=== PATIENT | female | born 1985 | race Two or more races ===

== ENCOUNTER 2017-08-19 09:13 | Emergency (ER) | payer MEDICAID ==
[~2017-08-19] VITALS: Ht 152.4 cm; Wt 65.8 kg
[~2017-08-19 09:13] MED LIST: ANTI-ITCH28 GM TOPIC; BENADRYL25 MG ORAL; CIPROFLOXACIN500 M2 ORAL; HYDROCORTISONE28 G5 TP; NKM; PREDNISONE20 MG ORAL; RANITIDINE HCL150 MG ORAL
[2017-08-19] MEDS ORDERED: NKM (09:21)
[2017-08-19 09:49] VITALS: BP 118/75
--- NOTE | 2017-08-19 09:49 | Emergency Room Report ---
History of Present Illness General Chief Complaint: Sore Throat Source: Patient Present Illness HPI The patient is a 31-year-old female presented after increased sore throat. Patient had a nonproductive cough. She reports having ill contact at home. She denies any fever. She denies difficulty breathing.The patient additionally reports having increased white thick vaginal discharge for several months.The patient denies being . Allergies: Coded Allergies: No Known Allergies (Unverified , 08/19/17) Patient History Past Medical History: see triage record Last Menstrual Period: 08/10/17 Now: No Reviewed Nursing Documentation: PMH: Agreed, PSxH: Agreed Nursing Documentation-PMH Past Medical History: No Stated History Review of Systems All Other Systems: negative except mentioned in HPI Physical Exam Vital Signs Date Time Temp Pulse Resp B/P (MAP) Pulse Ox O2 Delivery O2 Flow Rate FiO2 08/19/17 09:15 98.2 83 16 118/75 99 Room Air General Appearance: well appearing, no apparent distress, alert, GCS 15 Head: normocephalic, atraumatic ENT: hearing grossly normal, normal voice Neck: full range of motion, supple Respiratory: no respiratory distress, speaking full sentences Cardiovascular #1: normal inspection, no edema Gastrointestinal: normal inspection Musculoskeletal: normal inspection, back normal, digits/nails normal, no calf tenderness Neurologic: normal inspection, alert, oriented x3, responsive, normal gait Psychiatric: mood/affect normal Skin: no rash Medical Decision Making Diagnostic Impression: Primary Impression: Viral respiratory infection Additional Impression: Yeast vaginitis ER Course Patient presented for sore throat. Differential diagnosis included but was not limited to meningitis, exudative tonsillitis, retropharyngeal abscess, epiglottitis, strep pharyngitis. Patient's benign exam and does not appear to require any further imaging or laboratory testing at this time. Patient's exam is consistent with a viral pharyngitis. The patient was given Diflucan. 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 The patient is advised to follow up with primary care doctor in 1-2 days. Patient is advised to return if any worsening condition or if any changes in status that are concerning. Labs Test 08/19/17 09:30 Urine HCG, Qualitative Negative Last Vital Signs Date Time Temp Pulse Resp B/P (MAP) Pulse Ox O2 Delivery O2 Flow Rate FiO2 08/19/17 09:15 98.2 83 16 118/75 99 Room Air Status: improved Disposition: HOME, SELF-CARE Condition: Stable Referrals: NOT CHOSEN [facility]/,REFERRING (PCP) Bassem Gomez Aug 19, 2017 09:49
[2017-08-19] MEDS ORDERED: Fluconazole 100mg tab ORAL ONE (10:00)
[2017-08-19 10:51] VITALS: BP 118/75
== END 2017-08-19 10:52 | disposition home or self-care (01) ==
LOC: EMR 09:25
DX: J06.9 Acute upper respiratory infection, unspecified (principal); B97.89 Other viral agents as the cause of diseases classified elsewhere; B37.3 Candidiasis of vulva and vagina
CPT/HCPCS: 81025; 99283

== ENCOUNTER 2020-04-16 23:41 | Emergency (ER) | payer MEDICAID ==
[~2020-04-16] VITALS: Ht 152.4 cm; Wt 62.6 kg
--- NOTE | 2020-04-17 | NUR ---
ED Nurse Note: pt walked into ED from home stating that she needs a refill for flucanazole because she gets recurrent yeast infections, denies having one currently. also asking for a refill for hydroxyzine for skin rashes she gets. no other complaints at this time.
[2020-04-17 00:07] VITALS: BP 127/85
[2020-04-17] MEDS ORDERED: fluconazole PO (00:07)
[2020-04-17] MEDS ORDERED: HYDROXYZINE HCL25 M1 PO (00:07)
--- NOTE | 2020-04-17 00:08 | Emergency Room Report ---
History of Present Illness General Chief Complaint: Medication Refill Source: Patient, Medical Record Present Illness HPI Is a 34-year-old female with a history of pruritus. Unknown etiology. She went to multiple hospital and doctors. Testing is not always been negative. She want a refill on her Atarax. She denies any fever chills but no nausea no vomiting. While she is here she also 1 refill on fluconazole for recurrent yeast infection. She has no symptoms right now. No urinary symptoms. No discharge. Allergies: Coded Allergies: No Known Allergies (Unverified , 08/19/17) COVID-19 Screening Contact w/high risk pt: No Experienced COVID-19 symptoms?: No COVID-19 Testing performed GLUE SPRAYER: No Patient History Past Medical History: see triage record, old chart reviewed Past Surgical History: none Pertinent Family History: none Social History: Denies: smoking Now: No Immunizations: other Reviewed Nursing Documentation: PMH: Agreed; PSxH: Agreed Review of Systems Eye: Denies: eye pain, blurred vision ENT: Denies: ear pain, nose congestion, throat swelling Respiratory: Denies: cough, shortness of breath Cardiovascular: Denies: chest pain, palpitations Gastrointestinal: Denies: abdominal pain, diarrhea, nausea, vomiting Musculoskeletal: Denies: back pain, joint pain Skin: Denies: rash Neurological: Denies: headache, numbness Endocrine: Denies: increased thirst, increased urine Hematologic/Lymphatic: Denies: easy bruising All Other Systems: negative except mentioned in HPI Physical Exam Vital Signs Date Time Temp Pulse Resp B/P (MAP) Pulse Ox O2 Delivery O2 Flow Rate FiO2 04/16/20 23:46 98.4 85 19 127/85 (99) 99 Room Air Vitals normal Sp02 EP Interpretation: reviewed, normal General Appearance: well appearing, no apparent distress, alert Head: normocephalic, atraumatic Eyes: bilateral eye PERRL, bilateral eye EOMI ENT: hearing grossly normal, normal pharynx Neck: full range of motion, supple, no meningismus Respiratory: chest non-tender, lungs clear, normal breath sounds Cardiovascular #1: regular rate, rhythm, no murmur Gastrointestinal: normal bowel sounds, non tender, no mass, no organomegaly, no bruit, non-distended Musculoskeletal: back normal, normal range of motion, gait/station normal Psychiatric: mood/affect normal Medical Decision Making Diagnostic Impression: Primary Impression: Encounter for medication refill ER Course Patient here for refill on medication. She is asymptomatic right now. Will discharge home. Last Vital Signs Date Time Temp Pulse Resp B/P (MAP) Pulse Ox O2 Delivery O2 Flow Rate FiO2 04/16/20 23:46 98.4 85 19 127/85 (99) 99 Room Air Status: unchanged Disposition: HOME, SELF-CARE Condition: Stable Scripts [fluconazole] No Conflict Check 150 MG PO DAILY, #7 TAB 0 Refills Prov: Pelon Chaudhry MD 04/17/20 Hydroxyzine Hcl (HYDROXYZINE HCL) 25 Mg Tablet 25 MG PO QID, #240 TAB Prov: Pelon Chaudhry MD 04/17/20 Patient Instructions: Medicine Refill at the Emergency Department Additional Instructions: Follow-up with your doctor in 7 days as needed. Return if symptoms worsen. Pelon Chaudhry MD Apr 17, 2020 00:08
[2020-04-17 00:12] VITALS: BP 127/85
--- NOTE | 2020-04-17 00:12 | NUR ---
ER DISCHARGE NOTE: Patient is cleared to be discharged per ERMD, pt is aox4, on room air, with stable vital signs. pt was given dc and prescription instructions, pt was able to verbalize understanding, pt id band removed without complications. pt is able to ambulate with steady gait. pt took all belongings.
== END 2020-04-17 00:13 | disposition home or self-care (01) ==
LOC: EMR 04-17 00:07
DX: Z76.0 Encounter for issue of repeat prescription (principal)
CPT/HCPCS: 99282

== ENCOUNTER 2020-09-08 22:21 | Emergency (ER) | payer MEDICAID ==
[~2020-09-08] VITALS: Ht 152.4 cm; Wt 63.5 kg
[~2020-09-08 22:21] MED LIST changes: +HYDROXYZINE HCL25 M1 PO; +fluconazole PO
--- NOTE | 2020-09-08 22:26 | NUR ---
Note donna in EDM - 09/08/20 at 2318 by RASHAWN ED Nurse Note: Pt pt ambulated into ed co allergic reaction to unknown substance with rash over body x 30 mins ago. 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 pt states pain 10/10 with burning and itching. pt aao x 4, ambulates with steady gait
--- NOTE | 2020-09-08 22:28 | NUR ---
ED Nurse Note: Pt walked into the ed due to allergic reaction to unk sub with rash,burning and itching x 30 min agp. 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 pt aao x 4, ambulates with steady gait, no sob, vitals are stable. we will keep monitoring the pt.
[2020-09-08 22:36] VITALS: BP 116/78
[2020-09-08] MEDS ORDERED: VISTARIL50 MG ORAL (22:55)
[2020-09-08] MEDS ORDERED: PREDNISONE20 MG ORAL (22:55)
--- NOTE | 2020-09-08 22:55 | Emergency Room Report ---
History of Present Illness General Chief Complaint: Allergic Reaction Source: Patient Present Illness HPI Is a 35-year-old female with a history of urticaria. Unknown etiologies. She says she has multiple testing done in the past always been negative. She presents with itching and rash. Onset in the last few hours. Has not taken any for it. No fever chills but no nausea no vomiting. Very itchy. Worse with scratching. Better with rest. Denies any new medication or food. Allergies: Coded Allergies: No Known Allergies (Unverified , 08/19/17) COVID-19 Screening Contact w/high risk pt: No Experienced COVID-19 symptoms?: No COVID-19 Testing performed UPHOLSTERY RESTORER: No Patient History Past Medical History: see triage record, old chart reviewed Past Surgical History: none Pertinent Family History: none Last Menstrual Period: 09/07/2020 Now: No : 2 Para: 2 Immunizations: other Reviewed Nursing Documentation: PMH: Agreed; PSxH: Agreed Nursing Documentation-PMH Past Medical History: No History, Except For Review of Systems Eye: Denies: eye pain, blurred vision ENT: Denies: ear pain, nose congestion, throat swelling Respiratory: Denies: cough, shortness of breath Cardiovascular: Denies: chest pain, palpitations Gastrointestinal: Denies: abdominal pain, diarrhea, nausea, vomiting Musculoskeletal: Denies: back pain, joint pain Skin: Denies: rash Neurological: Denies: headache, numbness Endocrine: Denies: increased thirst, increased urine Hematologic/Lymphatic: Denies: easy bruising All Other Systems: negative except mentioned in HPI Physical Exam Vital Signs Date Time Temp Pulse Resp B/P (MAP) Pulse Ox O2 Delivery O2 Flow Rate FiO2 09/08/20 22:24 97.9 89 18 115/80 (92) 97 Room Air Vitals normal Sp02 EP Interpretation: reviewed, normal General Appearance: well appearing, no apparent distress, alert Head: normocephalic, atraumatic Eyes: bilateral eye PERRL, bilateral eye EOMI ENT: hearing grossly normal, normal pharynx Neck: full range of motion, supple, no meningismus Respiratory: chest non-tender, lungs clear, normal breath sounds Cardiovascular #1: regular rate, rhythm, no murmur Gastrointestinal: normal bowel sounds, non tender, no mass, no organomegaly, no bruit, non-distended Musculoskeletal: back normal, normal range of motion, gait/station normal Psychiatric: mood/affect normal Skin: other - Diffuse urticaria Medical Decision Making Diagnostic Impression: Primary Impression: Urticaria ER Course This patient presents with urticaria. Unknown etiology. No evidence of any rest or distress. No anaphylaxis. Last Vital Signs Date Time Temp Pulse Resp B/P (MAP) Pulse Ox O2 Delivery O2 Flow Rate FiO2 09/08/20 22:24 97.9 89 18 115/80 (92) 97 Room Air Status: improved Disposition: HOME, SELF-CARE Condition: Stable Scripts Hydroxyzine Pamoate* (VISTARIL*) 50 Mg Capsule 50 MG ORAL EVERY 6 HOURS, #30 TAB 0 Refills Prov: Pelon Chaudhry MD 09/08/20 Prednisone* (PREDNISONE*) 20 Mg Tablet 40 MG ORAL DAILY, #6 TAB Prov: Pelon Chaudhry MD 09/08/20 Patient Instructions: Allergies Additional Instructions: Follow-up with your doctor in 7 days. Return if symptoms worsen. Pelon Chaudhry MD Sep 08, 2020 22:55
[2020-09-08] MEDS: HydrOXYzine 50mg tab ORAL ONE (22:56)
[2020-09-08] MEDS: dexAMETHasone 10mg/ml Inj IV ONE (22:56)
[2020-09-08 23:00] VITALS: BP 79/56
--- NOTE | 2020-09-08 23:00 | NUR ---
ED Nurse Note: After getting decadron and atarax pt felt dizzy, she strated shivering, and her bp went to 78/58. We put the pt on trendelenburg, 2L N[place] , and started iv fluid. we will keep monitoring the pt.
[2020-09-08 23:15] VITALS: BP 107/69
--- NOTE | 2020-09-08 23:31 | NUR ---
ED Nurse Note: pt bp went up 107/67,less shivering, no breathing problem, pt is calm, vitals are stable. we will keep monitoring the pt.
[2020-09-08 23:45] VITALS: BP 129/73
[2020-09-09 00:23] VITALS: BP 127/72
--- NOTE | 2020-09-09 00:25 | NUR ---
ER DISCHARGE NOTE: Patient is cleared to be discharged per ERMD, pt is aox4, on room air, with stable vital signs. pt was given dc and prescription instructions, pt was able to verbalize understanding, pt id band and iv site removed without complications. pt is able to ambulate with steady gait. pt took all belongings.
== END 2020-09-09 00:23 | disposition home or self-care (01) ==
LOC: EMR 22:54
DX: L50.9 Urticaria, unspecified (principal)
CPT/HCPCS: 96361; 96374; Z7502; 99284

== ENCOUNTER 2020-09-18 21:24 | Emergency (ER) | payer MEDICAID ==
[~2020-09-18] VITALS: Ht 154.9 cm; Wt 63.5 kg
[~2020-09-18 21:24] MED LIST changes: +VISTARIL50 MG ORAL
[2020-09-18 21:30] VITALS: BP 105/72
--- NOTE | 2020-09-18 21:30 | NUR ---
ED Nurse Note: Pt walked in from home, vitals are stable on ra, walks with a stedady gait. Co of coughing, and feeling short of breath. Pt's mother, whom she lives with, was diagnosed with covid on Saturday. Her breathing is even and unlabored on RA. Resting comfortably, labs and urine sent.
--- NOTE | 2020-09-18 22:13 | Emergency Room Report ---
History of Present Illness General Chief Complaint: Flu Like Symptoms Source: Patient Present Illness HPI Disclaimer: Please note that this report is being documented using [employer] technology. This can lead to erroneous entry secondary to incorrect interpretation by the dictating instrument. HPI: 35-year-old female presents for evaluation of cough, muscle aches and fevers. Symptoms present approximately 10 days. Mom tested positive for COVID- 19 3 days ago. She lives with her mother and has close contact with her. Denies prior history of asthma, COPD or lung disease. Denies shortness of breath, chest pain or palpitations. Reports intermittent nausea and some loose stools. Denies vaginal bleeding, dysuria, hematuria, hematemesis or melena. Has been using NyQuil at night from control of fevers with good effect. Is not using anything during the day. Came in today for worsening cough. PMH: Denied PSH: Denied Allergies: Dexamethasone Social Hx: Denied Allergies: Coded Allergies: DEXAMETHASONE (Verified Allergy, Unknown, 09/18/20) COVID-19 Screening Contact w/high risk pt: Yes Experienced COVID-19 symptoms?: Yes COVID-19 Testing performed RACK WASHER: No Nursing Documentation-PMH Past Medical History: No Stated History Review of Systems All Other Systems: negative except mentioned in HPI Physical Exam Vital Signs Date Time Temp Pulse Resp B/P (MAP) Pulse Ox O2 Delivery O2 Flow Rate FiO2 09/18/20 21:30 98.6 89 24 106/70 (82) 98 Room Air General: Awake and alert, no acute distress HEENT: NC/AT. EOMI. Cardiovascular: RRR. S1 and S2 normal. No murmur appreciated Resp: Normal work of breathing. No cough, wheezing or crackles appreciated Abdomen: Abdomen is soft, nondistended. Nontender Skin: Intact. No abrasions, laceration or rash over the exposed skin MSK: Normal tone and bulk. Moving all extremities. No obvious deformity. Neuro: Awake and alert. Mentating appropriately. Medical Decision Making Diagnostic Impression: Primary Impression: Suspected 2019 novel coronavirus infection Additional Impression: Pneumonia ER Course 35-year-old female presents for evaluation of flulike symptoms present over 1 week. Close exposure to COVID-19 positive individual. Strong suspicion for COVID-19 infection though influenza, other viral syndrome, pneumonia also on the differential. Chest x-ray shows bilateral consolidations consistent with likely a viral pneumonia though cannot exclude bacterial source. Will start on azithromycin. Will follow up with her PMD. She does not require emergent labs otherwise well-appearing saturating 100% on room air no respiratory distress with stable heart rate and currently afebrile. Can follow-up with outpatient COVID-19 testing and further labs and imaging per her PMD as necessary. Instructed to return with new or worsening symptoms. She understands and agrees with this treatment plan. Chest X-Ray Diagnostic Results Chest X-Ray Diagnostic Results : Chest X-Ray Ordered: Yes # of Views/Limited/Complete: 1 View Indication: Shortness of Breath EP Interpretation: Yes Interpretation: no effusion, no pneumothorax, other - Bilateral hazy opacities Impression: Other - Bilateral hazy opacities consistent with pneumonia Electronically Signed by: Electronically signed by Dr. Ronald Alcala MD Last Vital Signs Date Time Temp Pulse Resp B/P (MAP) Pulse Ox O2 Delivery O2 Flow Rate FiO2 09/18/20 21:30 98.6 89 24 106/70 (82) 98 Room Air Disposition: HOME, SELF-CARE Condition: Stable Scripts Aspirin (Aspirin EC) 81 Mg Tablet.dr 81 MG ORAL DAILY for 30 Days, #30 TAB Prov: Ronald Alacla MD 09/18/20 D-Methorphan Hb/Prometh Hcl* (PROMETHAZINE-DM SYRUP*) 118 Ml Syrup 5 ML ORAL Q6H PRN for For Cough for 5 Days, #118 ML 0 Refills Prov: Ronald Alcala MD 09/18/20 Azithromycin* (ZITHROMAX*) 250 Mg Tablet 250 MG ORAL DAILY, #6 TAB 0 Refills Take two tables once daily for 1 day, then one tablet once daily for 4 days. Prov: Ronald Alcala MD 09/18/20 Referrals: NOT CHOSEN [facility]/,REFERRING (PCP) Ronald Alcala MD Sep 18, 2020 22:13
[2020-09-18] MEDS ORDERED: ZITHROMAX250 MG ORAL (22:16)
[2020-09-18] MEDS ORDERED: ASPIRIN-LOW81 MG ORAL (22:16)
[2020-09-18] MEDS ORDERED: PROMETHAZINE-D118 ML ORAL (22:16)
--- NOTE | 2020-09-18 22:25 | Diagnostic Imaging Report ---
EXAM: XR Chest, 1 View CLINICAL HISTORY: COUGH TECHNIQUE: Limited portable upright Frontal view of the chest. COMPARISON: 09/20/2006. Findings/impression: Airspace consolidations are identified primarily within the periphery of the right mid and lower lung, findings suggestive of pneumonia. The heart is normal in size. No pleural effusions or pneumothorax Osseous structures are unremarkable.
[2020-09-18 22:41] VITALS: BP 106/79
--- NOTE | 2020-09-18 22:42 | NUR ---
ER DISCHARGE NOTE: Patient is cleared to be discharged per ERMD, pt is aox4, on room air, with stable vital signs. pt was given dc and prescription instructions, pt was able to verbalize understanding, pt id band removed. pt is able to ambulate with steady gait. pt took all belongings. Pt left in a private car
== END 2020-09-18 22:30 | disposition home or self-care (01) ==
LOC: EMR 21:39
DX: Z20.822 Contact with and (suspected) exposure to COVID-19 (principal); J18.9 Pneumonia, unspecified organism; Z88.8 Allergy status to other drugs, medicaments and biological substances
CPT/HCPCS: 71045; Z7502; 99283